=== PATIENT | female | born 1960 | race Caucasian/White ===

== ENCOUNTER 2019-11-14 18:33 | Emergency (ER) | payer BC, SELFPAY ==
--- NOTE | ~2019-11-14 | XR_ITS ---
EXAMINATION: XR chest 2V DATE: 11/14/2019 19:11 INDICATION: Cough. Shortness of breath. TECHNIQUE: Frontal and lateral views of the chest were obtained. COMPARISON: Chest 2 views 07/19/2014 FINDINGS: The chest demonstrates clear lungs without pneumonia, pleural effusion, or pneumothorax. Th e heart size is normal. There are changes of anterior fusion procedure in cervical spine. IMPRESSION: 1. No acute cardiopulmonary disease. Reviewed, dictated and finalized at location A.
--- NOTE | 2019-11-14 18:41 | ED.URI ---
HPI - URI/Sore Throat General Chief Complaint: Upper Respiratory Infection Stated Complaint: SOB/Cough Time Seen by Provider: 11/14/19 18:56 Source: patient and RN notes reviewed Mode of arrival: ambulatory Limitations: no limitations History of Present Illness HPI Narrative: 58-year-old female presents with concern for chest burning, she feels like she cannot get enough air . She reports symptoms started a week ago and have worsened. She denies body aches, nausea, vomiting, diarrhea. She has no known exposure to COVID-19. Reports her daughter has influenza. MD elicited complaint: cough Related Data Home Medications Medication Instructions Recorded Confirmed atorvastatin [Lipitor] 20 mg PO DAILY 11/14/19 11/14/19 escitalopram oxalate 10 mg PO DAILY 11/14/19 11/14/19 gabapentin 300 mg PO DAILY 11/14/19 11/14/19 levothyroxine [Levoxyl] 150 mcg PO DAILY 11/14/19 11/14/19 lisinopril 10 mg PO DAILY 11/14/19 11/14/19 Allergies Allergy/AdvReac Type Severity Reaction Status Date / Time azithromycin Allergy Unknown Unknown Verified 11/14/19 18:48 codeine Allergy Unknown Unknown Verified 11/14/19 18:48 Sulfa (Sulfonamide AdvReac Unknown NAUSEA Verified 11/14/19 18:48 Antibiotics) Review of Systems Review of Systems: Narrative: CONSTITUTIONAL: Reports malaise, fatigue. Denies chills, sweats, or fever. EYES: Denies visual changes, redness, or discharge. ENT: Denies rhinorrhea, congestion, sinus pain, otalgia and sore throat. CARDIOVASCULAR: Denies chest pain, palpitations, or edema. RESPIRATORY: Reports cough, chest burning, not getting enough air. Denies dyspnea. GASTROINTESTINAL: Denies abdominal pain, nausea, vomiting, diarrhea SKIN: Denies rash or itching. MUSCULOSKELETAL: Denies myalgia. NEUROLOGIC: Denies headache. All systems reviewed & are unremarkable except as noted in HPI and below [facility] Family History Family History (Updated 01/24/18 @ 15:07 by DOCTOR UNKNOWN) Mother Hypertension Family history of arthritis Family history of chronic obstructive pulmonary disease Family history of malignant neoplasm of breast in first degree relative Social History Social History Gender identity (if verbalized by the patient): Female Comments At time of signature, agree with nursing past medical, surgical, social and family history. There is no relevant family history pertinent to the presenting complaint Exam Narrative: Exam Narrative: GENERAL: Well-appearing, well-nourished, and in no acute distress. HEAD: Normocephalic EYES: PERRLA, conjunctivae clear ENT: Nares clear, turbinates pink, no discharge. Mucous membranes moist. TM pearly kruse with sharp light reflex bilaterally; no tragal tenderness. Oropharynx not erythematous without lesions. Tonsils not enlarged and without exudate, no drooling, no hoarseness, no trismus, uvula midline. NECK: Supple. No lymphadenopathy CHEST: Clear to auscultation, breath sounds equal. No wheezing, rhonchi, rales, or stridor. No respiratory distress, speaks in full sentences. HEART: Regular rate and rhythm. No murmur heard. SKIN: Warm, dry, no rash. NEURO: Alert and oriented x3. PSYCH: Normal mood and affect Course Course Emergency Course: X-ray results reviewed with patient. Patient counseled on seeking test for COVID-19. Patient counseled on signs and symptoms to observe to go to the emergency room if her symptoms worsen. Patient is aware of diagnosis, understands and agrees to treatment plan. Anticipatory guidance given. Patient agrees to follow-up as directed and is aware of reasons to seek care at the emergency department. Portions of this record may have been created with voice recognition software Vital Signs Vital signs: Vital Signs Temperature 98.1 F 11/14/19 18:44 Pulse Rate 73 11/14/19 18:44 Respiratory Rate 16 11/14/19 18:44 Blood Pressure 152/84 H 11/14/19 18:44 Pulse Oximetry 97 11/14/19 18:44 Temperature 98.1 F 11/14/19 18:44 P
[2019-11-14 18:44] VITALS: BP 152/84; PULSE 73; RESP 16; TEMP 36.7; O2SAT 97
== END 2019-11-14 19:25 | disposition home or self-care (01) ==
PROVIDERS: Emergency Provider Nurse Practitioner; PCP Family Medicine Sports Medicine
DX: J40 Bronchitis, not specified as acute or chronic (principal); E78.00 Pure hypercholesterolemia, unspecified; I10 Essential (primary) hypertension; F41.9 Anxiety disorder, unspecified; E05.90 Thyrotoxicosis, unspecified without thyrotoxic crisis or storm
CPT/HCPCS: 71046; 99213; G0463

== ENCOUNTER 2021-05-07 07:10 | Outpatient (CLI) | payer BC, SELFPAY ==
--- NOTE | 2021-05-07 | ECG_ITS ---
Measurements Intervals [place] Rate: 79 P: 66 CT: 186 QRS: -9 QRSD: 109 T: 10 QT: 381 QTc: 438 Interpretive Statements SINUS RHYTHM BORDERLINE ST-T WAVE ABNORMALITY- ANT/INF LEADS BORDERLINE ECG Electronically Signed On 05-07-2021 14:17:39 CDT by Noah Babb D.O.
[2021-05-07 07:53] LABS: Basophils Absolute Auto 0.1 K/mm3 (0.0-0.1); Eosinophils Absolute Auto 0.2 K/mm3 (0-0.3); Eosinophils Percent Auto 4.5 % (0-4.4); Hematocrit 42.2 % (37.0-47.0); Hemoglobin 14.4 g/dL (12.0-15.0); Immature Granulocyte Absolute 0.01 K/mm3 (0.00-0.031); Immature Granulocyte Percent A 0.2 % (0-0.5); Lymphocytes Absolute Auto 1.54 K/mm3 (0.9-3.2); Lymphocytes Percent Auto 30.3 % (18.3-44.2); Mean Corpuscular HGB Conc 34.1 g/dl (32-36); Mean Corpuscular Hemoglobin 31.5 pg (26-34); Mean Corpuscular Volume 92.3 fl (80-100); Mean Platelet Volume 10.7 fl (7.4-10.4); Monocytes Absolute Auto 0.4 K/mm3 (0.1-0.6); Monocytes Percent Auto 7.1 % (2.6-8.5); Neutrophils Absolute Auto 2.9 K/mm3 (1.3-6.7); Neutrophils Percent Auto 56.9 % (45.5-73.1); Platelet Count Result 247 k/mm3 (150-375); Red Blood Count 4.57 M/mm3 (4.2-5.4); Red Cell Distribution Width 12.3 % (11.5-14.5); White Blood Count 5.1 K/mm3 (4.5-10.0)
[2021-05-07 07:59] LABS: Partial Thromboplastin Time 24.6 SECONDS (22.3-36.8)
[2021-05-07 08:09] LABS: Anion Gap 8 mmol/L (8-16); Blood Urea Nitrogen 23 mg/dL (7-17); Calcium 9.5 mg/dL (8.4-10.2); Carbon Dioxide 28 mmol/L (22-30); Chloride 105 mmol/L (98-107); Estimated Glomerular Filt Rate > 60; Glucose 103 mg/dL (65-110); Potassium 4.1 mmol/L (3.4-5.0); Sodium 141 mmol/L (137-145)
[2021-05-07 08:33] LABS: Thyroid Stimulating Hormone < 0.015 uIU/mL (0.465-4.680)
[2021-05-07 08:56] LABS: Microalbumin Urine Random 43.6 mg/L (0-16.7)
[2021-05-07 09:07] LABS: Vitamin D 25 Hydroxy 43.4 ng/mL
[2021-05-07 09:54] LABS: MALB Creatinine Ratio 9.8 mg/g (0-30)
== END 2021-05-07 07:11 | disposition home or self-care (01) ==
PROVIDERS: PCP Family Medicine Sports Medicine; Visit Provider Family Medicine Sports Medicine
DX: Z01.818 Encounter for other preprocedural examination (principal)
CPT/HCPCS: 36415; 80048; 82043; 82306; 84439; 84443; 85025; 85730; 93005

== ENCOUNTER 2021-05-11 17:14 | Outpatient (CLI) | payer BC, SELFPAY ==
[2021-05-11 18:16] LABS: Add Urine Microscopic? YES; Appearance Urine Clear (Clear); Bilirubin Urine Negative (Negative); Blood Urine Negative (Negative); Color Urine Straw (Yellow); Glucose Urine UA Negative (Negative); Ketones Urine Negative (Negative); Leukocyte Esterase Ur 2+ LEU/UL (NEGATIVE); Nitrate Urine Negative (Negative); Protein Urine Negative (Negative); RBC Urine 0-2 /hpf (0-2); Squamous Epithelial Cell Urine Few /hpf (Few); Urobilinogen Urine Negative mg/dL (<2.0)
[2021-05-11 18:17] LABS: INR 0.9; Prothrombin Time 12.1 Seconds (11.1-14.7)
== END 2021-05-11 17:15 | disposition home or self-care (01) ==
LOC: ANHLAB 17:17
PROVIDERS: PCP Family Medicine Sports Medicine; Visit Provider Family Medicine Sports Medicine
DX: Z01.818 Encounter for other preprocedural examination (principal)
CPT/HCPCS: 36415; 81001; 85610

== ENCOUNTER 2021-08-18 16:25 | Emergency (ER) | payer BC, SELFPAY ==
--- NOTE | ~2021-08-18 | XR_ITS ---
EXAMINATION: XR chest 1V portable INDICATION: Unproductive cough and sore throat TECHNIQUE: Portable AP chest at 2213 hours COMPARISON: 11/14/2019 FINDINGS: The lungs are free of acute opacities. There is mild elevation of the right hemidiaphragm. No pleural effusion or pneumothorax is identified. The cardiomediastinal silhouette is normal. There are changes of fusion procedure in the lower cervical spine. 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 IMPRESSION: 1. No acute cardiopulmonary abnormality. Reviewed, dictated and finalized at location F. ERY ANALYST
[2021-08-18 16:49] VITALS: BP 117/78; PULSE 105; RESP 22; TEMP 35.9; O2SAT 96
[2021-08-18 18:37] VITALS: BP 124/63; PULSE 102; RESP 19; O2SAT 94
[2021-08-18 21:03] VITALS: O2SAT 99
[2021-08-18 21:06] VITALS: BP 113/63; PULSE 96; RESP 20; TEMP 36.6; O2SAT 94
[2021-08-18 22:07] VITALS: BP 117/76; PULSE 101; RESP 20; O2SAT 96
--- NOTE | 2021-08-18 23:02 | ED.GENADULT ---
HPI - General Adult General Chief complaint: Upper Respiratory Infection Stated complaint: SOB Time Seen by Provider: 08/18/21 21:30 History of Present Illness HPI narrative: Patient is a 60-year-old female who presents ER with cough. Ongoing for 5 days. Associated with sinus congestion and postnasal drip. She has been taking Mucinex for her symptoms without improvement. She is unsure if it is D or DM. She reports she went to an urgent care today and they swabbed her for COVID-19 but she is not received results. No loss of taste or smell. No chest pain or chest pressure. No loss of consciousness. Patient is concerned she could have pneumonia. Related Data Home Medications Medication Instructions Recorded Confirmed atorvastatin [Lipitor] 20 mg PO DAILY 11/14/19 11/14/19 escitalopram oxalate 10 mg PO DAILY 11/14/19 11/14/19 gabapentin 300 mg PO DAILY 11/14/19 11/14/19 levothyroxine [Levoxyl] 150 mcg PO DAILY 11/14/19 11/14/19 lisinopril 10 mg PO DAILY 11/14/19 11/14/19 Allergies Allergy/AdvReac Type Severity Reaction Status Date / Time azithromycin Allergy Unknown Unknown Verified 11/14/19 18:48 codeine Allergy Unknown Unknown Verified 11/14/19 18:48 Sulfa (Sulfonamide AdvReac Unknown NAUSEA Verified 11/14/19 18:48 Antibiotics) Review of Systems Review of Systems: All systems reviewed & are unremarkable except as noted in HPI and below Constitutional: Constitutional: Denies chills, Reports fatigue and Denies fever(s) ENT: Reports nasal congestion and Reports sore throat Cardiovascular: Cardiovascular: Denies chest pain, Denies rapid heart rate and Denies radiating jaw, neck or arm pain Respiratory: Respiratory: Reports cough, Denies dyspnea and Denies wheezing Gastrointestinal: Gastrointestinal: Denies abdominal pain, Denies nausea and Denies vomiting Musculoskeletal: Musculoskeletal: Denies back pain and Denies muscle cramps PMFSH Past Medical History Medical History (Updated 08/18/21 @ 23:08 by Grant Mcnamara MD) Hyperlipidemia Hypertension Hypothyroidism Surgical History Surgical History (Updated 08/18/21 @ 23:05 by Grant Mcnamara MD) History of back surgery Family History Family History (Updated 01/24/18 @ 15:07 by DOCTOR UNKNOWN) Mother Hypertension Family history of arthritis Family history of chronic obstructive pulmonary disease Family history of malignant neoplasm of breast in first degree relative Social History Social History Gender identity (if verbalized by the patient): Female Exam Narrative: GENERAL: Well-appearing, well-nourished, and in no acute distress. HEAD: Normocephalic, atraumatic. NECK: Supple. CHEST: Clear to auscultation. No respiratory distress. HEART: Regular rate and rhythm. Normal peripheral pulses. ABDOMEN: Soft, nontender, nondistended. EXTREMITIES: Normal range of motion. No edema. NEURO: Alert and oriented x3. PSYCH: Normal mood and affect. Course Course Emergency Course: No evidence of pneumonia. Patient has already been swabbed for Covid. Seems like she could use a nasal decongestant. Vital Signs Vital signs: Vital Signs Temperature 96.6 F L 08/18/21 16:49 Pulse Rate 105 H 08/18/21 16:49 Respiratory Rate 22 H 08/18/21 16:49 Blood Pressure 117/78 08/18/21 16:49 Pulse Oximetry 96 08/18/21 16:49 Temperature 97.8 F 08/18/21 21:06 Pulse Rate 101 H 08/18/21 22:07 Respiratory Rate 20 08/18/21 22:07 Blood Pressure 117/76 08/18/21 22:07 Pulse Oximetry 96 08/18/21 22:07 Medical Decision Making Vital Signs Vital Signs: Vital Signs Temperature 96.6 F L 08/18/21 16:49 Pulse Rate 105 H 08/18/21 16:49 Respiratory Rate 22 H 08/18/21 16:49 Blood Pressure 117/78 08/18/21 16:49 Pulse Oximetry 96 08/18/21 16:49 Temperature 97.8 F 08/18/21 21:06 Pulse Rate 101 H 08/18/21 22:07 Respiratory Rate 20 08/18/21 22:07 Blood Pressure 117/76 08/18/21 22:07 Pulse Oximet
[2021-08-18 23:26] VITALS: BP 115/65; PULSE 98; RESP 18; O2SAT 98
== END 2021-08-18 23:26 | disposition home or self-care (01) ==
PROVIDERS: Emergency Provider Emergency Medicine; PCP Family Medicine Sports Medicine
DX: B34.9 Viral infection, unspecified (principal); Z20.822 Contact with and (suspected) exposure to COVID-19; E78.5 Hyperlipidemia, unspecified; I10 Essential (primary) hypertension; E03.9 Hypothyroidism, unspecified
CPT/HCPCS: 71045; 99283

== ENCOUNTER 2021-09-16 07:44 | Outpatient (CLI) | payer BC, OTHER, SELFPAY ==
--- NOTE | 2021-09-16 | ECG_ITS ---
Measurements Intervals [place] Rate: 79 P: 74 [place]: 184 QRS: -20 QRSD: 102 T: -4 QT: 380 QTc: 436 Interpretive Statements SINUS RHYTHM DELAYED PRECORDIAL R/S TRANSITION LOW QRS VOLTAGE IN PRECORDIAL LEADS BORDERLINE ST-T WAVE ABNORMALITY- ANT/INF LEADS BORDERLINE ECG Electronically Signed On 09-16-2021 8:36:11 [employer] by Noah Babb D.O.
[2021-09-16 08:20] LABS: Hematocrit 41.7 % (37.0-47.0); Mean Corpuscular HGB Conc 33.6 g/dl (32-36); Mean Corpuscular Hemoglobin 30.4 pg (26-34); Mean Corpuscular Volume 90.5 fl (80-100); Mean Platelet Volume 10.2 fl (7.4-10.4); Platelet Count Result 217 k/mm3 (150-375); Red Blood Count 4.61 M/mm3 (4.2-5.4); Red Cell Distribution Width 13.3 % (11.5-14.5); White Blood Count 4.6 K/mm3 (4.5-10.0)
[2021-09-16 08:28] LABS: Anion Gap 6 mmol/L (8-16); Blood Urea Nitrogen 22 mg/dL (7-17); Calcium 9.7 mg/dL (8.4-10.2); Carbon Dioxide 28 mmol/L (22-30); Chloride 107 mmol/L (98-107); Estimated Glomerular Filt Rate > 60; Glucose 109 mg/dL (65-110); Potassium 3.8 mmol/L (3.4-5.0); Sodium 141 mmol/L (137-145)
[2021-09-16 08:34] LABS: INR 0.9; Prothrombin Time 12.4 Seconds (11.1-14.7)
[2021-09-16 08:35] LABS: Partial Thromboplastin Time 25.6 SECONDS (22.3-36.8)
[2021-09-16 08:40] LABS: Add Urine Microscopic? YES; Appearance Urine Clear (Clear); Bilirubin Urine Negative (Negative); Blood Urine 1+ (Negative); Color Urine Yellow (Yellow); Glucose Urine UA Negative (Negative); Ketones Urine Negative (Negative); Leukocyte Esterase Ur 2+ LEU/UL (NEGATIVE); Mucus Urine Rare /lpf; Nitrate Urine Negative (Negative); Protein Urine Negative (Negative); Specific Grav Ur 1.024 (1.001-1.035); Squamous Epithelial Cell Urine Many /hpf (Few); Urobilinogen Urine Negative mg/dL (<2.0)
[2021-09-16 09:53] LABS: Vitamin D 25 Hydroxy 36.6 ng/mL
== END 2021-09-16 07:45 | disposition home or self-care (01) ==
PROVIDERS: PCP Family Medicine Sports Medicine; Visit Provider Family Medicine Sports Medicine
DX: Z01.810 Encounter for preprocedural cardiovascular examination (principal); R94.31 Abnormal electrocardiogram [ECG] [EKG]
CPT/HCPCS: 36415; 80048; 81001; 82306; 85027; 85610; 85730; 93005